=== PATIENT | male | born 1975 | race American Indian/Alaskan Native ===

== ENCOUNTER 2016-08-06 21:42 | Emergency (ER) | payer SELFPAY ==
[2016-08-06 23:39] LABS: Bacteria,Urine 1+ /HPF (Negative); Bilirubin,Urine NEG (Negative); Blood,Urine NEG (Negative); Ketones,Urine NEG (Negative); Leukocyte Esterase,Urine LG (Negative); Mucus,Urine 3+ /HPF; Nitrite,Urine NEG (Negative)
[2016-08-07 03:32] VITALS: BP 147/102
[2016-08-07] MEDS ORDERED: ZITHROMAX PO ONE (03:42)
[2016-08-07] MEDS ORDERED: XYLOCAINE 1% MPF 5 mL INFILTRATI ONE (03:42)
[2016-08-07] MEDS ORDERED: ROCEPHIN IM ONE (03:42)
--- NOTE | 2016-08-07 04:11 | Emergency Department Report ---
ED General Adult HPI - General Chief complaint: Skin/Abscess/Foreign Body Stated complaint: BOIL Time Seen by Provider: 08/07/16 03:34 Source: patient Mode of arrival: Ambulatory Limitations: No Limitations - History of Present Illness Initial comments: Patient comes in the ER with complaints of a rising on the right side of his scrotum for the past one month and states that he has been recently informed that he has been sexually active with a woman that has Trichomonas. Patient denies any dysuria, penile discharge, abdominal pain, fever, body aches. Patient states that the spot on his scrotum started off as a small little bump and he tried to squeeze it and it got bigger. Severity scale (0 -10): 7 - Related Data Previous Rx's Medication Instructions Recorded Last Taken Type Clindamycin [Clindamycin CAP] 450 mg PO TID #90 capsule 12/06/12 Unknown Rx Hydrocodone Bit/Acetaminophen 1 each PO Q6H PRN #15 tablet 12/06/12 Unknown Rx [Lortab 7.5-500 Tablet] metroNIDAZOLE [Flagyl] 500 mg PO Q12HR #14 tab 08/07/16 Unknown Rx Allergies Allergy/AdvReac Type Severity Reaction Status Date / Time No Known Allergies Allergy Verified 12/06/12 09:12 ED Review of Systems ROS: Stated complaint: BOIL Other details as noted in HPI Constitutional: denies: chills, fever Eyes: denies: eye pain, eye discharge, vision change ENT: denies: ear pain, throat pain Respiratory: denies: cough, shortness of breath, wheezing Cardiovascular: denies: chest pain, palpitations Endocrine: no symptoms reported Gastrointestinal: denies: abdominal pain, nausea, diarrhea Genitourinary: denies: urgency, dysuria, frequency, hematuria, discharge, testicular pain, testicular mass Musculoskeletal: denies: back pain, joint swelling, arthralgia Skin: lesions. denies: rash Neurological: denies: headache, weakness, paresthesias Psychiatric: denies: anxiety, depression Hematological/Lymphatic: denies: easy bleeding, easy bruising ED Past Medical Hx - Past Medical History Previous Medical History?: No - Surgical History Past Surgical History?: Yes - Social History Smoking Status: Current Every Day Smoker Substance Use Type: Marijuana - Medications Home Medications: Home Medications Medication Instructions Recorded Confirmed Last Taken Type Clindamycin [Clindamycin CAP] 450 mg PO TID #90 capsule 12/06/12 Unknown Rx Hydrocodone Bit/Acetaminophen 1 each PO Q6H PRN #15 tablet 12/06/12 Unknown Rx [Lortab 7.5-500 Tablet] metroNIDAZOLE [Flagyl] 500 mg PO Q12HR #14 tab 08/07/16 Unknown Rx ED Physical Exam - General Limitations: No Limitations General appearance: alert, in no apparent distress - Head Head exam: Present: atraumatic, normocephalic - Eye Eye exam: Present: normal appearance - ENT ENT exam: Present: mucous membranes moist - Neck Neck exam: Present: normal inspection - Respiratory Respiratory exam: Present: normal lung sounds bilaterally. Absent: respiratory distress - Cardiovascular Cardiovascular Exam: Present: regular rate, normal rhythm. Absent: systolic murmur, diastolic murmur, rubs, gallop - GI/Abdominal GI/Abdominal exam: Present: soft, normal bowel sounds. Absent: distended, tenderness, guarding, rebound, rigid, organomegaly, mass, bruit, hernia - Rectal Rectal exam: Present: deferred - exam: Present: other (1 cm localized nodule just superficial on the right side of scrotum. Nodule is nontender. No inguinal lymphadenopathy or surrounding tissue swelling.). Absent: testicular tenderness, urethral discharge - Extremities Exam Extremities exam: Present: normal inspection - Back Exam Back exam: Present: normal inspection - Neurological Exam Neurological exam: Present: alert, oriented X3 - Psychiatric Psychiatric exam: Present: normal affect, normal mood - Skin Skin exam: Present: warm, dry, intact, normal color. Absent: rash ED Course Vital Signs 08/06/16 08/07/16 22:47 03:30 Temperature 99.4 F 98.3 F Pulse Rate 91 H 78 Respiratory 20 18 Rate Blood Pressure 158/100 Blood Pressure 158/100 147/102 [Left] Blood Pressure 163/128 [Right] O2 Sat by Pulse 99 100 Oximetry ED Medical Decision Making - Lab Data Lab Results 08/06/16 Range/Units 23:20 Urine Color [place] (Yellow) Urine Turbidity Clear (Clear) Urine pH 5.0 (5.0-7.0) Ur Specific [place] 1.031 H (1.003-1.030) Urine Protein 30 mg/dl (Negative) mg/dL Urine Glucose (UA) Neg (Negative) mg/dL Urine Ketones Neg (Negative) mg/dL Urine Blood Neg (Negative) Urine Nitrite Neg (Negative) Urine Bilirubin Neg (Negative) Urine Urobilinogen 2.0 (<2.0) mg/dL Ur Leukocyte Esterase Lg (Negative) Urine WBC (Auto) 133.0 H (0.0-6.0) /HPF Urine RBC (Auto) 20.0 (0.0-6.0) /HPF U Epithel Cells (Auto) 4.0 (0-13.0) /HPF Urine Bacteria (Auto) 1+ (Negative) /HPF Urine Mucus 3+ /HPF - Medical Decision Making Patient is nontoxic and hemodynamically stable. I offered to perform incision and drainage to patient's lesion and patient refused. Patient states that he would rather take medicine and see if it pops on its own. I will start patient on antibiotics for exposure to Trichomonas. Patient was given Rocephin and Zithromax here in the ER for any other possible STDs. However refer patient to urology for further evaluation and possible incision and drainage of abscess. Patient is in agreement with treatment plan a patient is stable for discharge. Critical care attestation.: If time is entered above; I have spent that time in minutes in the direct care of this critically ill patient, excluding procedure time. ED Disposition Clinical Impression: UTI (urinary tract infection), Skin pustule, Exposure to trichomonas Disposition: DC-01 TO HOME OR SELFCARE Is pt being admited?: No Does the pt Need Aspirin: No Condition: Good Instructions: Trichomoniasis (ED), Urinary Tract Infection in Men (ED), Abscess (ED) Prescriptions: metroNIDAZOLE [Flagyl] 500 mg PO Q12HR #14 tab Referrals: PRIMARY MD EMILEE [Primary Care Provider] - 3-5 Days BARRON MCCARTHY MD [Staff Physician] - 3-5 Days Time of Disposition: 04:16
== END 2016-08-07 04:22 | disposition home or self-care (01) ==
LOC: ED 21:42
DX: N39.0 Urinary tract infection, site not specified (principal); L08.9 Local infection of the skin and subcutaneous tissue, unspecified; Z20.828 Contact with and (suspected) exposure to other viral communicable diseases; F17.200 Nicotine dependence, unspecified, uncomplicated
CPT/HCPCS: 81001; 96372; 99283; J0696

== ENCOUNTER 2017-01-25 18:00 | Emergency (ER) | payer OTHER ==
--- NOTE | 2017-01-25 23:02 | Emergency Department Report ---
[facility] Chief Complaint: Eye Problems Stated Complaint: RIGHT EYE PAIN Time Seen by Provider: 01/25/17 22:40 Duration: 2 Days Side: Right Symptoms: Yes Eye Itching (right eye), Yes Eye Redness (rt eye), Yes Mucous Drainage (rt eye), Yes Purulent Drainage (rt eye), No Eye Pain, No Blurred Vision, No Preceding URI, No H/O Allergic Rhinitis, No Contact Lens Use, No Trauma, No Fever, No Headache Other History: Patient reports that he woke up 2 days ago and he had right eye redness and itching in. He said when he woke up this morning his right eye was closed shut. He said redness is now going over to the left eye. It is any foreign body sensation, scratchy feeling, injury or foreign body to right eye. Eyes wearing contacts or glasses. Denies any pain to his eyes he reports redness and drainage with swelling. Eyes any direct trauma to his eye. Tetanus vaccine is up-to-date. ED Review of Systems ROS: Stated complaint: RIGHT EYE PAIN Other details as noted in HPI Comment: All other systems reviewed and negative Constitutional: no symptoms reported Eyes: eye discharge, other (eye drainage and itching in). denies: eye pain, vision change ENT: denies: ear pain, throat pain, dental pain, hearing loss, epistaxis, congestion Respiratory: no symptoms reported Cardiovascular: denies: chest pain, palpitations, dyspnea on exertion, edema, syncope, paroxysmal nocturnal dyspnea Gastrointestinal: denies: abdominal pain, vomiting, diarrhea Musculoskeletal: denies: back pain, joint swelling, arthralgia, myalgia Skin: denies: rash Neurological: denies: headache, weakness, numbness, paresthesias, confusion, abnormal gait, vertigo ED Past Medical Hx - Past Medical History Previous Medical History?: No - Surgical History Past Surgical History?: No - Family History Family history: hypertension - Social History Smoking Status: Current Every Day Smoker Substance Use Type: Alcohol, Marijuana - Medications Home Medications: Home Medications Medication Instructions Recorded Confirmed Last Taken Type Clindamycin [Clindamycin CAP] 450 mg PO TID #90 capsule 12/06/12 Unknown Rx Hydrocodone Bit/Acetaminophen 1 each PO Q6H PRN #15 tablet 12/06/12 Unknown Rx [Lortab 7.5-500 Tablet] metroNIDAZOLE [Flagyl] 500 mg PO Q12HR #14 tab 08/07/16 Unknown Rx Gentamicin 0.3% Ophth Soln 2 drops OP Q8H 1 Days #1 bottle 01/25/17 Unknown Rx [facility] Exam - Exam General: Vital signs noted. No distress. Alert and acting appropriately. This is a 41-year-old male well-nourished well-developed in no acute distress. Eye Exam: Right Injection (sclera and conjunctiva injected.), Right Mucous Discharge, Right Purulent Discharge, Both EOMI (visual acuity is 20/15 all around), Neither Chemosis, Neither Abnormal Pupil, Neither Eye Foreign Body, Neither Lid Foreign Body, Neither Corneal Edema, Neither Photophobia HEENT: No Nasal Congestion, No Pharyngeal Erythema Remainder of HEENT: Normal Lungs: Yes Clear Lung Sounds, Yes Good Air Exchange, No Wheezes, No Stridor, No Cough, No Nasal Flaring, No Retractions, No Use of Accessory Muscles Exam: Neck: Supple, negative adenopathy. Range of motion. Lungs: Clear Auscultated bilaterally, no rhonchi wheezes or rales. Ext: No Clubbing, cyanosis or edema +2 pulses all extremities. Skin: Clean, dry and intact, no rash or lesions. Psych: Normal mood and behavior ED Course Vital Signs 01/25/17 18:18 Temperature 99 F Pulse Rate 93 H Respiratory 20 Rate Blood Pressure 149/102 O2 Sat by Pulse 99 Oximetry Manual BP 142/98 - Reevaluation(s) Reevaluation #1: 01/25/17 23:34 Patient with blood pressure elevated. He states that he doesn't have any history of high blood pressure but he doesn't go to the doctor and does not take his blood pressure. He said he does not know his paternal side of the family but his terminal grandmother with high blood pressure. Chin is asymptomatic with elevated blood pressure. ED Medical Decision Making - Medical Decision Making ED course: She will complained of redness to his right eye that started 2 days ago with itching and he has been rubbing eyes. 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 Patient visual acuity is 20/15 all around and he is not having any eye pain or foreign body sensation in the eye. He did not have any trauma to his eye nor did he get any dust or other particle in his eyes per patient. Patient also with elevated blood pressure which is asymptomatic and he is a smoker with maternal grandmother with high blood pressure. He does not know if he has high blood pressure because he said he doesn't go to the doctor and he doesn't take his blood pressure. I discussed patient that his blood pressures elevated and he will need to keep a log of his blood pressure and record daily and schedule an appointment with [facility] for Review. Also discussed patient that he has a child which is referred to his conjunctivitis and he'll need to instill eyedrops in his right eye 3 times a day for 7 days and if he noticed that left eye similar to right eyes and he needs to also place a drop in his left eye. I also told patient that he will need to be away from work for 2 days. He was undescended discharge instruction and treatment plan and discharged home with prescription for gentamicin. Patient given advise on smoking cessation and also management through last modification for weight loss and to manage her elevated blood pressure. Critical care attestation.: If time is entered above; I have spent that time in minutes in the direct care of this critically ill patient, excluding procedure time. ED Disposition Clinical Impression: Acute bacterial conjunctivitis of right eye, Elevated blood-pressure reading without diagnosis of hypertension, Nicotine abuse Disposition: DC-01 TO HOME OR SELFCARE Is pt being admited?: No Does the pt Need Aspirin: No Condition: Stable Instructions: DASH Eating Plan (ED), Hypertension (ED), Low Sodium Diet (ED), Heart Healthy Diet (ED), Conjunctivitis (ED) Additional Instructions: Please practice good hand hygiene. He noticed that redness is spreading to left eye, please start using in gentamicin antibiotic eye drop in left eye If your symptoms worsen to your right I, please follow-up with eye doctor in the morning and a few symptoms are getting better then he needs to follow-up with eye doctor in 2-3 days. keep a log of your blood pressure daily and record. Schedule appointment at [facility] In 2-3 days for follow-up Prescriptions: Gentamicin 0.3% Ophth Soln 2 drops OP Q8H 1 Days #1 bottle Referrals: PRIMARY CARE, [Primary Care Provider] - 2-3 Days [facility] [Outside] - 2-3 Days MELITON MARTINEZ MD [Staff Physician] - 01/26/17 Forms: Work/School Release Form(ED)
[2017-01-26 00:48] VITALS: BP 131/98
== END 2017-01-25 23:45 | disposition home or self-care (01) ==
LOC: ED 18:00
DX: H10.31 Unspecified acute conjunctivitis, right eye (principal); R03.0 Elevated blood-pressure reading, without diagnosis of hypertension; F17.200 Nicotine dependence, unspecified, uncomplicated; F12.10 Cannabis abuse, uncomplicated
CPT/HCPCS: 99282

== ENCOUNTER 2017-01-27 10:28 | Emergency (ER) | payer SELFPAY ==
[2017-01-27 10:39] VITALS: BP 136/99
[2017-01-27] MEDS ORDERED: TETRACAINE 0.5% OU ONE (12:10)
[2017-01-27] MEDS ORDERED: FUL-GLO OP ONE (12:10)
--- NOTE | 2017-01-27 13:37 | Emergency Department Report ---
ED General Adult HPI - General Chief complaint: Eye Problems Stated complaint: RIGHT EYE PAIN Time Seen by Provider: 01/27/17 11:46 Source: patient Mode of arrival: Ambulatory Limitations: No Limitations - History of Present Illness Initial comments: Patient is a 41-year-old male no significant past medical history who presents with right eye pain and swelling. He states that 2 days ago he was seen in the emergency department and given gentamicin drops for his eye. However he states he is here because he still has redness and swelling in his eye. Patient states that he's been compliant with the medication. 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 He states that he wants "something orally to take to help him relieve the infection." - Related Data Previous Rx's Medication Instructions Recorded Last Taken Type Clindamycin [Clindamycin CAP] 450 mg PO TID #90 capsule 12/06/12 Unknown Rx Hydrocodone Bit/Acetaminophen 1 each PO Q6H PRN #15 tablet 12/06/12 Unknown Rx [Lortab 7.5-500 Tablet] metroNIDAZOLE [Flagyl] 500 mg PO Q12HR #14 tab 08/07/16 Unknown Rx Gentamicin 0.3% Ophth Soln 2 drops OP Q8H 1 Days #1 bottle 01/25/17 Unknown Rx Amoxicillin/K Clav Tab [Augmentin 1 each PO Q12HR #14 tablet 01/27/17 Unknown Rx 500 MG TAB] Naproxen 250 mg PO Q12HR #20 tablet 01/27/17 Unknown Rx Allergies Allergy/AdvReac Type Severity Reaction Status Date / Time No Known Allergies Allergy Verified 12/06/12 09:12 ED Review of Systems ROS: Stated complaint: RIGHT EYE PAIN Other details as noted in HPI Constitutional: denies: chills, fever Eyes: eye pain, eye discharge. denies: vision change ENT: denies: ear pain, throat pain Respiratory: denies: cough, shortness of breath, wheezing Cardiovascular: denies: chest pain, palpitations Endocrine: no symptoms reported Gastrointestinal: denies: abdominal pain, nausea, diarrhea Genitourinary: denies: urgency, dysuria Musculoskeletal: denies: back pain, joint swelling, arthralgia Skin: denies: rash, lesions Neurological: denies: headache, weakness, paresthesias Psychiatric: denies: anxiety, depression Hematological/Lymphatic: denies: easy bleeding, easy bruising ED Past Medical Hx - Past Medical History Previous Medical History?: Yes Additional medical history: right eye pain/swelling - Surgical History Past Surgical History?: No - Social History Smoking Status: Current Every Day Smoker Substance Use Type: Alcohol, Prescribed - Medications Home Medications: Home Medications Medication Instructions Recorded Confirmed Last Taken Type Clindamycin [Clindamycin CAP] 450 mg PO TID #90 capsule 12/06/12 Unknown Rx Hydrocodone Bit/Acetaminophen 1 each PO Q6H PRN #15 tablet 12/06/12 Unknown Rx [Lortab 7.5-500 Tablet] metroNIDAZOLE [Flagyl] 500 mg PO Q12HR #14 tab 08/07/16 Unknown Rx Gentamicin 0.3% Ophth Soln 2 drops OP Q8H 1 Days #1 bottle 01/25/17 Unknown Rx Amoxicillin/K Clav Tab [Augmentin 1 each PO Q12HR #14 tablet 01/27/17 Unknown Rx 500 MG TAB] Naproxen 250 mg PO Q12HR #20 tablet 01/27/17 Unknown Rx ED Physical Exam - General Limitations: No Limitations General appearance: alert, in no apparent distress - Head Head exam: Present: atraumatic, normocephalic - Eye Eye exam: Present: periorbital swelling, other (EOMI intact bilaterally no pain with movement with eye dropbs) - Expanded Eye Exam Expanded Eyelids: Swelling: Right Sclera/Conjunctival: Injection: Left - ENT ENT exam: Present: mucous membranes moist - Neck Neck exam: Present: normal inspection - Respiratory Respiratory exam: Present: normal lung sounds bilaterally. Absent: respiratory distress - Cardiovascular Cardiovascular Exam: Present: regular rate, normal rhythm. Absent: systolic murmur, diastolic murmur, rubs, gallop - GI/Abdominal GI/Abdominal exam: Present: soft, normal bowel sounds - Rectal Rectal exam: Present: deferred - Extremities Exam Extremities exam: Present: normal inspection - Back Exam Back exam: Present: normal inspection - Neurological Exam Neurological exam: Present: alert, oriented X3 - Psychiatric Psychiatric exam: Present: normal affect, normal mood - Skin Skin exam: Present: warm, dry, intact, normal color. Absent: rash ED Course Vital Signs 01/27/17 10:32 Temperature 98.7 F Pulse Rate 85 Respiratory 24 Rate Blood Pressure 136/99 O2 Sat by Pulse 99 Oximetry ED Medical Decision Making - Medical Decision Making Chief medical diagnosis: Bacterial conjunctivitis Differential diagnosis: Viral conjunctivitis, allergic conjunctivitis, . foreign body in the eye I will get fluorescein strip and tetracaine drops and evaluate the eye. Patient has no foreign body and no corneal abrasion I will give patient oral antibiotic per his request but discussed the patient efficacy of oral antibiotic for conjunctivitis is very poor. I will also give patient erythromycin ointment for his eye. Patient agrees with plan and additional verbal discharge instructions were given. Critical care attestation.: If time is entered above; I have spent that time in minutes in the direct care of this critically ill patient, excluding procedure time. ED Disposition Clinical Impression: Pain, eye, right Bilateral conjunctivitis Qualifiers: Conjunctivitis type: acute Acute conjunctivitis type: unspecified Qualified Code(s): H10.33 - Unspecified acute conjunctivitis, bilateral Disposition: DC- TO HOME OR SELFCARE Is pt being admited?: No Does the pt Need Aspirin: No Condition: Stable Instructions: Eye Pain (ED) Prescriptions: Amoxicillin/K Clav Tab [Augmentin 500 MG TAB] 1 each PO Q12HR #14 tablet Naproxen 250 mg PO Q12HR #20 tablet Referrals: TONYA OLIVARES MD [Staff Physician] - 3-5 Days MAXX CASILLAS MD [Staff Physician] - 3-5 Days
== END 2017-01-27 13:52 | disposition home or self-care (01) ==
LOC: ED 10:28
DX: H10.9 Unspecified conjunctivitis (principal); F17.200 Nicotine dependence, unspecified, uncomplicated
CPT/HCPCS: 99283

== ENCOUNTER 2020-12-15 14:42 | Emergency (ER) | payer SELFPAY ==
--- NOTE | 2020-12-15 14:58 | Emergency Department Report ---
ED ENT HPI - General Chief complaint: Dental/Oral Stated complaint: SWOLLEN LFT SIDE OF FACE Time Seen by Provider: 12/15/20 14:45 Source: patient Mode of arrival: Ambulatory Limitations: No Limitations - History of Present Illness Initial comments: Chief complaint facial swelling HPI: This is a 45-year-old male with history of pancreatitis who presents with left jaw pain. He has broken tooth at the lifestyle. He denies any fever. Minimal pain. 3 out of 10 achy pain. No difficulty swallowing. No neck pain. MD complaint: tooth pain, other (Facial swelling) Location: tooth # (19) Severity: mild Severity scale (0 -10): 3 Quality: aching Consistency: constant Improves with: none Worsens with: none - Related Data Previous Rx's Medication Instructions Recorded Last Taken Type Clindamycin [Clindamycin CAP] 450 mg PO TID #90 capsule 12/06/12 Unknown Rx Hydrocodone Bit/Acetaminophen 1 each PO Q6H PRN #15 tablet 12/06/12 Unknown Rx [Lortab 7.5-500 Tablet] metroNIDAZOLE [Flagyl] 500 mg PO Q12HR #14 tab 08/07/16 Unknown Rx Gentamicin 0.3% Ophth Soln 2 drops OP Q8H 1 Days #1 bottle 01/25/17 Unknown Rx Amoxicillin/K Clav Tab [Augmentin 1 each PO Q12HR #14 tablet 01/27/17 Unknown Rx 500 MG TAB] Naproxen 250 mg PO Q12HR #20 tablet 01/27/17 Unknown Rx Amoxicillin/Potassium Clav 1 each PO BID 10 Days #20 tablet 12/15/20 Unknown Rx [Augmentin 875-125 Tablet] Allergies Allergy/AdvReac Type Severity Reaction Status Date / Time No Known Allergies Allergy Verified 12/06/12 09:12 ED Dental HPI - General Chief complaint: Dental/Oral Stated complaint: SWOLLEN LFT SIDE OF FACE Time Seen by Provider: 12/15/20 14:45 Source: patient Mode of arrival: Ambulatory Limitations: No Limitations - Related Data Previous Rx's Medication Instructions Recorded Last Taken Type Clindamycin [Clindamycin CAP] 450 mg PO TID #90 capsule 12/06/12 Unknown Rx Hydrocodone Bit/Acetaminophen 1 each PO Q6H PRN #15 tablet 12/06/12 Unknown Rx [Lortab 7.5-500 Tablet] metroNIDAZOLE [Flagyl] 500 mg PO Q12HR #14 tab 08/07/16 Unknown Rx Gentamicin 0.3% Ophth Soln 2 drops OP Q8H 1 Days #1 bottle 01/25/17 Unknown Rx Amoxicillin/K Clav Tab [Augmentin 1 each PO Q12HR #14 tablet 01/27/17 Unknown Rx 500 MG TAB] Naproxen 250 mg PO Q12HR #20 tablet 01/27/17 Unknown Rx Amoxicillin/Potassium Clav 1 each PO BID 10 Days #20 tablet 12/15/20 Unknown Rx [Augmentin 875-125 Tablet] Allergies Allergy/AdvReac Type Severity Reaction Status Date / Time No Known Allergies Allergy Verified 12/06/12 09:12 ED Review of Systems ROS: Stated complaint: SWOLLEN LFT SIDE OF FACE Other details as noted in HPI Constitutional: denies: chills, fever, malaise ENT: denies: ear pain, throat pain Respiratory: denies: shortness of breath Gastrointestinal: denies: abdominal pain, nausea Skin: denies: rash, lesions ED Past Medical Hx - Past Medical History Previous Medical History?: Yes Additional medical history: right eye pain/swelling, pancreatitis - Surgical History Past Surgical History?: No - Social History Smoking Status: Current Every Day Smoker Substance Use Type: Alcohol, Prescribed - Medications Home Medications: Home Medications Medication Instructions Recorded Confirmed Last Taken Type Clindamycin [Clindamycin CAP] 450 mg PO TID #90 capsule 12/06/12 Unknown Rx Hydrocodone Bit/Acetaminophen 1 each PO Q6H PRN #15 tablet 12/06/12 Unknown Rx [Lortab 7.5-500 Tablet] metroNIDAZOLE [Flagyl] 500 mg PO Q12HR #14 tab 08/07/16 Unknown Rx Gentamicin 0.3% Ophth Soln 2 drops OP Q8H 1 Days #1 bottle 01/25/17 Unknown Rx Amoxicillin/K Clav Tab [Augmentin 1 each PO Q12HR #14 tablet 01/27/17 Unknown Rx 500 MG TAB] Naproxen 250 mg PO Q12HR #20 tablet 01/27/17 Unknown Rx Amoxicillin/Potassium Clav 1 each PO BID 10 Days #20 tablet 12/15/20 Unknown Rx [Augmentin 875-125 Tablet] ED Physical Exam - General Limitations: No Limitations General appearance: alert, in no apparent distress - Head Head exam: Present: atraumatic, normocephalic - ENT ENT exam: Present: other (Purulent drainage gum swelling left jaw foot associated cheek left facial swelling) - Respiratory Respiratory exam: Absent: respiratory distress - Neurological Exam Neurological exam: Present: alert, oriented X3 - Psychiatric Psychiatric exam: Present: normal affect, normal mood - Skin Skin exam: Present: warm, dry, intact, normal color ED Course Vital Signs 12/15/20 14:48 Temperature 99.1 F Pulse Rate 100 H Respiratory 18 Rate Blood Pressure 134/84 O2 Sat by Pulse 98 Oximetry ED Medical Decision Making - Medical Decision Making Odontogenic infection, dental abscess: Augmentin prescribed 10-day course. Referred to dentist. Critical care attestation.: If time is entered above; I have spent that time in minutes in the direct care of this critically ill patient, excluding procedure time. ED Disposition Clinical Impression: Odontogenic infection of jaw, Dental abscess Disposition: 01 HOME / SELF CARE / HOMELESS Is pt being admited?: No Does the pt Need Aspirin: No Condition: Stable Instructions: Dental Abscess, [id number] Prescriptions: Amoxicillin/Potassium Clav [Augmentin 875-125 Tablet] 1 each PO BID 10 Days #20 tablet Referrals: [facility] [Outside] - [facility]
[2020-12-15 15:22] VITALS: BP 132/87
== END 2020-12-15 15:19 | disposition home or self-care (01) ==
LOC: ED 14:42
DX: K04.7 Periapical abscess without sinus (principal); F17.200 Nicotine dependence, unspecified, uncomplicated; Z72.89 Other problems related to lifestyle; Z79.899 Other long term (current) drug therapy
CPT/HCPCS: 99281

== ENCOUNTER 2021-08-20 14:55 | Emergency (ER) | payer SELFPAY ==
[2021-08-21] MEDS ORDERED: LIDOCAINE-MPF (1%) 10 MG/1 ML VIAL 5 ML INFILTRATI ONE (01:20)
--- NOTE | 2021-08-21 01:34 | Emergency Department Report ---
- General Chief complaint: Pain General Stated complaint: UPPER LIP AND FACE SWOLLEN Time Seen by Provider: 08/21/21 00:48 Source: patient Mode of arrival: Ambulatory Limitations: No Limitations - History of Present Illness Initial comments: 45-year-old male presents emerged department complaining of pain and swelling tenderness of the left cheek as well as up to the left forehead of unknown etiology he noticed swelling and some redness thought he might have had an insect bite. Ports no blurry vision, no headache, no tinnitus. No neck pain -: Gradual Location: face Severity: mild, moderate Quality: burning, aching, dull Consistency: constant Improves with: none Worsens with: none Context: none Treatments Prior to Arrival: none - Related Data Previous Rx's Medication Instructions Recorded Last Taken Type Clindamycin [Clindamycin CAP] 450 mg PO TID #90 capsule 12/06/12 Unknown Rx Hydrocodone Bit/Acetaminophen 1 each PO Q6H PRN #15 tablet 12/06/12 Unknown Rx [Lortab 7.5-500 Tablet] metroNIDAZOLE [Flagyl] 500 mg PO Q12HR #14 tab 08/07/16 Unknown Rx Gentamicin 0.3% Ophth Soln 2 drops OP Q8H 1 Days #1 bottle 01/25/17 Unknown Rx Amoxicillin/K Clav Tab [Augmentin 1 each PO Q12HR #14 tablet 01/27/17 Unknown Rx 500 MG TAB] Naproxen 250 mg PO Q12HR #20 tablet 01/27/17 Unknown Rx Amoxicillin/Potassium Clav 1 each PO BID 10 Days #20 tablet 12/15/20 Unknown Rx [Augmentin 875-125 Tablet] Ketorolac [Toradol] 10 mg PO Q6H PRN #15 tablet 08/21/21 Unknown Rx Sulfamethoxazole/Trimethoprim 1 each PO BID #20 tablet 08/21/21 Unknown Rx [Bactrim Ds] cephALEXin [Keflex] 500 mg PO Q6HR #40 capsule 08/21/21 Unknown Rx Allergies Allergy/AdvReac Type Severity Reaction Status Date / Time No Known Allergies Allergy Verified 12/06/12 09:12 Abscess Boil HPI - HPI Chief Complaint: Pain General Stated Complaint: UPPER LIP AND FACE SWOLLEN Time Seen by Provider: 08/21/21 00:48 Home Medications: Previous Rx's Medication Instructions Recorded Last Taken Type Clindamycin [Clindamycin CAP] 450 mg PO TID #90 capsule 12/06/12 Unknown Rx Hydrocodone Bit/Acetaminophen 1 each PO Q6H PRN #15 tablet 12/06/12 Unknown Rx [Lortab 7.5-500 Tablet] metroNIDAZOLE [Flagyl] 500 mg PO Q12HR #14 tab 08/07/16 Unknown Rx Gentamicin 0.3% Ophth Soln 2 drops OP Q8H 1 Days #1 bottle 01/25/17 Unknown Rx Amoxicillin/K Clav Tab [Augmentin 1 each PO Q12HR #14 tablet 01/27/17 Unknown Rx 500 MG TAB] Naproxen 250 mg PO Q12HR #20 tablet 01/27/17 Unknown Rx Amoxicillin/Potassium Clav 1 each PO BID 10 Days #20 tablet 12/15/20 Unknown Rx [Augmentin 875-125 Tablet] Ketorolac [Toradol] 10 mg PO Q6H PRN #15 tablet 08/21/21 Unknown Rx Sulfamethoxazole/Trimethoprim 1 each PO BID #20 tablet 08/21/21 Unknown Rx [Bactrim Ds] cephALEXin [Keflex] 500 mg PO Q6HR #40 capsule 08/21/21 Unknown Rx Allergies/Adverse Reactions: Allergies Allergy/AdvReac Type Severity Reaction Status Date / Time No Known Allergies Allergy Verified 12/06/12 09:12 ED Review of Systems ROS: Stated complaint: UPPER LIP AND FACE SWOLLEN Other details as noted in HPI Comment: All other systems reviewed and negative ED Past Medical Hx - Past Medical History Additional medical history: right eye pain/swelling, pancreatitis - Social History Smoking Status: Current Every Day Smoker Substance Use Type: Alcohol, Prescribed - Medications Home Medications: Home Medications Medication Instructions Recorded Confirmed Last Taken Type Clindamycin [Clindamycin CAP] 450 mg PO TID #90 capsule 12/06/12 Unknown Rx Hydrocodone Bit/Acetaminophen 1 each PO Q6H PRN #15 tablet 12/06/12 Unknown Rx [Lortab 7.5-500 Tablet] metroNIDAZOLE [Flagyl] 500 mg PO Q12HR #14 tab 08/07/16 Unknown Rx Gentamicin 0.3% Ophth Soln 2 drops OP Q8H 1 Days #1 bottle 01/25/17 Unknown Rx Amoxicillin/K Clav Tab [Augmentin 1 each PO Q12HR #14 tablet 01/27/17 Unknown Rx 500 MG TAB] Naproxen 250 mg PO Q12HR #20 tablet 01/27/17 Unknown Rx Amoxicillin/Potassium Clav 1 each PO BID 10 Days #20 tablet 12/15/20 Unknown Rx [Augmentin 875-125 Tablet] Ketorolac [Toradol] 10 mg PO Q6H PRN #15 tablet 08/21/21 Unknown Rx Sulfamethoxazole/Trimethoprim 1 each PO BID #20 tablet 08/21/21 Unknown Rx [Bactrim Ds] cephALEXin [Keflex] 500 mg PO Q6HR #40 capsule 08/21/21 Unknown Rx ED Physical Exam - General Limitations: No Limitations General appearance: alert, in no apparent distress - Head Head exam: Present: atraumatic, normocephalic - Expanded Head Exam Expanded 1 - Redness swelling tenderness with some wound discharge. Warm with mild induration - Eye Eye exam: Present: normal appearance, PERRL, EOMI Pupils: Present: normal accommodation - ENT ENT exam: Present: mucous membranes moist - Neck Neck exam: Present: normal inspection - Respiratory Respiratory exam: Present: normal lung sounds bilaterally. Absent: respiratory distress - Cardiovascular Cardiovascular Exam: Present: regular rate, normal rhythm. Absent: systolic murmur, diastolic murmur, rubs, gallop - GI/Abdominal GI/Abdominal exam: Present: soft, normal bowel sounds - Rectal Rectal exam: Present: deferred - Extremities Exam Extremities exam: Present: normal inspection - Back Exam Back exam: Present: normal inspection - Neurological Exam Neurological exam: Present: alert, oriented X3 - Psychiatric Psychiatric exam: Present: normal affect, normal mood - Skin Skin exam: Present: warm, dry, intact, normal color. Absent: rash ED Course Vital Signs 08/20/21 16:52 Temperature 98.5 F Pulse Rate 82 Respiratory 18 Rate Blood Pressure 147/84 [Right] O2 Sat by Pulse 94 Oximetry Critical care attestation.: If time is entered above; I have spent that time in minutes in the direct care of this critically ill patient, excluding procedure time. ED Disposition Clinical Impression: Facial cellulitis Disposition: HOME / SELF CARE / HOMELESS Is pt being admited?: No Does the pt Need Aspirin: No Condition: Stable Instructions: Cellulitis, Adult Referrals: [facility] [Provider Group] - 3-5 Days
[2021-08-21] MEDS ORDERED: oxyCODONE /ACETAMINOPHEN 5-325MG TAB PO ONE (01:45)
[2021-08-21 03:36] VITALS: BP 143/79
== END 2021-08-21 03:56 | disposition home or self-care (01) ==
LOC: ED 14:55
DX: L03.211 Cellulitis of face (principal); F17.290 Nicotine dependence, other tobacco product, uncomplicated
CPT/HCPCS: 96372; 99282; J0696; J3490